=== PATIENT | female | born 1950 | race Caucasian/White ===

== ENCOUNTER 2018-02-05 15:31 | Emergency (ER) | payer MEDICARE, BC ==
[~2018-02-05] VITALS: Ht 160 cm; Wt 77.2 kg
[2018-02-05 17:29] VITALS: BP 121/65
== END 2018-02-05 17:38 | disposition home or self-care (01) ==
LOC: ED 15:31
PROC: 0HQ0XZZ Repair Scalp Skin, External Approach (ICD-10-PCS; principal; 2018-02-05)
DX: S01.01XA Laceration without foreign body of scalp, initial encounter (principal); W01.0XXA Fall on same level from slipping, tripping and stumbling without subsequent striking against object, initial encounter; Y93.89 Activity, other specified; Y92.34 Swimming pool (public) as the place of occurrence of the external cause